=== PATIENT | male | born 1930 | race Caucasian/White ===

== ENCOUNTER → 2016-11-02 | Outpatient (CLI) | payer OTHER ==
[~2016-11-02] MED LIST: IOPAMIDOL (ISOVUE 370) 100 ML BTL IV ONE
== END ==
LOC: CIMAGING 08:21
DX: I71.4 Abdominal aortic aneurysm, without rupture (principal); M48.06 Spinal stenosis, lumbar region
CPT/HCPCS: 74174; Q9967

== ENCOUNTER → 2018-11-14 | Outpatient (CLI) | payer OTHER | LOC: CIMAGING 09:37 ==